=== PATIENT | female | born 1965 | race Hispanic/Latino ===

== ENCOUNTER 2018-10-03 06:29 | Day surgery (SDC) | payer BC ==
--- OUTSIDE RECORDS SUMMARY | 2018-10-03 06:31 | XMS REPORT ---
:1965 [facility] Address [address] [place] [address] [address] Care Team Providers Name Role Phone Unavailable Unavailable Unavailable Payers Payer Name Policy Type Policy Number Effective Date Expiration Date Problems This patient has no known problems. Allergies, Adverse Reactions, Alerts This patient has no known allergies or adverse reactions. Medications This patient has no known medications.
[2018-10-03] MEDS ORDERED: Ringers Lactate 1,000 ML IV ONE (06:54)
[2018-10-03] MEDS ORDERED: LIDOCAINE 1% 20 ML MDV ONE (06:58)
[2018-10-03] MEDS ORDERED: LIDOCAINE 1% MPF 5 ML VIAL ONE (07:38)
[2018-10-03] MEDS ORDERED: PROPOFOL 200 MG/20 ML VIAL IV ONE (07:38)
--- NOTE | 2018-10-03 07:45 | ENDO RPT ---
[address], [address] COLONOSCOPY PROCEDURE REPORT EXAM DATE: 10/03/2018 PATIENT NAME: Ofelia Henley MR #: [id number] BIRTHDATE: 1965 ATTENDING: Mihir Ya MD STATUS: outpatient E [employer] MARKETING MANAGER: Maki Madrigal, Boogie Regalado RN, and Sanna Ibanez RN INDICATIONS: The patient is a 53 yr old Female here for a colonoscopy due to colon cancer screening PROCEDURE PERFORMED: Colonoscopy with biopsy - cold polypectomy MEDICATIONS: Per Anesthesia. ESTIMATED BLOOD LOSS: None CONSENT: The patient understands the risks and benefits of the procedure and understands that these risks include, but are not limited to: sedation, allergic reaction, infection, perforation and/or bleeding. Alternative means of evaluation and treatment include, among others: physical exam, x-rays, and/or surgical intervention. The patient elects to proceed with this endoscopic procedure. DESCRIPTION OF PROCEDURE: During intra-op preparation period all mechanical medical equipment was checked for proper function. Hand hygiene and appropriate measures for infection prevention was taken. Procedure, possible complications, alternatives including, but not limited to possibility of bleeding, perforation, tear, infection, sepsis, need for surgery, need for blood transfusion, were explained to the patient. After the risks, benefits and alternatives of the procedure were thoroughly explained, Informed consent was verified, confirmed and timeout was successfully executed by the treatment team. The patient was placed in the left lateral position. A digital rectal exam was performed and revealed external hemorrhoids. After appropriate level of anesthesia, the scope was passed. The EC-[id number] ([id number]) endoscope was introduced through the anus and advanced to the cecum, which was identified by transillumination from the light source, the appendix, and the ileocecal valve. The quality of the prep was good. The instrument was then slowly withdrawn as the colon was fully examined. Scope withdrawal time was . COLON FINDINGS: A sessile polyp was found at approxinmately 90 cm from anal verge less than 0.3cm in size. . Retroflexed views revealed no abnormalities. The scope was then completely withdrawn from the patient and the procedure terminated. ADVERSE EVENTS: There were no complications. IMPRESSIONS: 1. Sessile polyp was found; polypectomy was performed in a piecemeal fashion using hot forceps 2. External hemorrhoids 3. Internal hemorrhoids RECOMMENDATIONS: follow-up: office 1 week(s) RECALL: for Colonoscopy, pending biopsy results. Mihir Ya MD eSigned: Mihir Ya MD 10/03/2018 7:45 AM cc: Lay Khan M.D. CPT CODES: ICD9 CODES: PATIENT NAME: Ofelia Henley MR#: [id number]
[2018-10-03 08:03] VITALS: BP 105/67; TEMP 97.1; O2SAT 97
== END 2018-10-03 08:35 | disposition home or self-care (01) ==
LOC: OR 06:29
PROVIDERS: ATTEND Surgery
PROC: 0DBL8ZX Excision of Transverse Colon, Via Natural or Artificial Opening Endoscopic, Diagnostic (ICD-10-PCS; principal; 2018-10-03 07:30)
DX: Z12.11 Encounter for screening for malignant neoplasm of colon (principal); D12.3 Benign neoplasm of transverse colon; K64.8 Other hemorrhoids; K64.4 Residual hemorrhoidal skin tags
CPT/HCPCS: 45384; 88305; J2704

== ENCOUNTER 2020-11-04 08:23 | Day surgery (SDC) | payer OTHER ==
--- NOTE | 2020-11-04 08:25 | RAD REPORT ---
EXAM DESCRIPTION: RAD - Chest Pa And Lat (2 Views) - 11/04/2020 8:20 am CLINICAL HISTORY: preop COMPARISON: Abdomen Exam Complete dated 10/20/2020 FINDINGS: Lungs: No evidence of edema or pneumonia. Pleural: No significant pleural effusions or pneumothorax. Cardiac: The heart size is within normal limits. Bones: No acute fractures. Lines: None. IMPRESSION: No acute cardiopulmonary disease.
[2020-11-04 08:31] LABS: Basophils % 0.3 % (0-1.3); Lymphocytes % 27.3 % (15.3-44.8); MPV 7.7 fL (7.6-11.3); RBC Red Blood Cell Count 4.63 M/uL (3.86-4.86)
[2020-11-04 08:47] LABS: ALT/SGPT 29 U/L (12-78); AST/SGOT 16 U/L (15-37); Albumin 3.8 g/dL (3.4-5.0); Alkaline Phosphatase 61 U/L (45-117); Amylase 51 U/L (25-115); BUN Blood Urea Nitrogen 20 mg/dL (7-18); Bicarbonate 29 mmol/L (21-32); Bilirubin Direct 0.1 mg/dL (0-0.2); Bilirubin Total 0.5 mg/dL (0.2-1.0); Glucose Level 91 mg/dL (74-106); Lipase 72 U/L (73-393); Potassium 4.4 mmol/L (3.5-5.1); Protein, Total 7.1 g/dL (6.4-8.2); Sodium Level 143 mmol/L (136-145)
[2020-11-04] MEDS ORDERED: Ringers Lactate 1,000 ML IV ONE (09:12)
[2020-11-04] MEDS ORDERED: CEFOXITIN/SWI 1gm 1 GM/10 ML SYR ONE (09:13)
[2020-11-04] MEDS ORDERED: MIDAZOLAM HCL 2 MG/2 ML INJ ONE (10:42)
[2020-11-04] MEDS ORDERED: FENTANYL CITR 100 MCG/2 ML ONE ×2 (10:43→14:53)
[2020-11-04] MEDS ORDERED: propofoL 200 MG/20 ML VIAL IV ONE (10:43)
[2020-11-04] MEDS ORDERED: LIDOCAINE 2% MPF 5 ML VIAL ONE (10:44)
[2020-11-04] MEDS ORDERED: ONDANSETRON 4 MG/2 ML VIAL ONE (10:44)
[2020-11-04] MEDS ORDERED: ROCURONIUM 50 MG/5 ML VIAL IV ONE (10:44)
--- NOTE | 2020-11-04 11:00 | P.BOP ---
Preoperative diagnosis: RUQ abd pain, acute cholecystitis, enlarging gallbladder polyps Postoperative diagnosis: same Primary procedure: Laparoscopic cholecystectomy Estimated blood loss: <10cc Specimen: gb Findings: as above Anesthesia: General Complications: None Transferred to: Recovery Room Condition: Good
[2020-11-04] MEDS ORDERED: BUPIVACAINE 0.5% PF 10 ML VIAL ONE (11:10)
[2020-11-04] MEDS ORDERED: dexAMETHasone 10 MG/ML VIAL ONE (11:16)
[2020-11-04 11:46] VITALS: O2SAT 100
[2020-11-04] MEDS ORDERED: KETOROLAC 30 MG/ML INJ ONE (11:48)
[2020-11-04] MEDS ORDERED: NEOSTIGMINE 1 MG/ML -5 ML ONE (11:50)
[2020-11-04] MEDS ORDERED: GLYCOPYRROLATE 0.2 MG/ML SYR ONE (11:50)
--- NOTE | 2020-11-04 12:19 | DS ---
Diagnosis: Right upper quadrant abdominal pain, acute cholecystitis, enlarging gallbladder polyps. Disposition: Home. Activity: As tolerated. No heavy lifting. Plan: Follow up in my office in 1 week. Call for appointment at [phone]. Keep area dry for 48 marva rs, then may shower. Keep Steri-Strip intact. Medications: Include Tylenol No.3 q.4 hours p.r.n. pain, Bactrim DS p.o. b.i.d., and Zofran 4 q.6 p. r.n. nausea. ROMAN/KIRK Voice ID: [id number] Report ID: [id number]
--- NOTE | 2020-11-04 12:19 | OP ---
Date of Procedure: 11/04/2020 Surgeon: Mihir Ya MD Preoperative Diagnoses: Right upper quadrant abdominal pain, acute cholecystitis, enlarging gallblad nora polyps. Postoperative Diagnoses: Right upper quadrant abdominal pain, acute cholecystitis, enlarging gallbla dder polyps. Procedure: Laparoscopic cholecystectomy. Specimen: Gallbladder. Findings: The gallbladder from the outside does not look like has any tumors, liver with no tumors a t least extra capsule and anterior. Anesthesia: General plus local. Indication: This is the case of a female, who comes to us with a recurrent right upper quadrant abdo angel pain, acute cholecystitis, also found to have gallbladder polyps. Apparently, she has some bef ore, now she has enlargement of the previous one and new one. So, she understands the option of lapa roscopic possible open cholecystectomy, as well as options. She wants that with benefits, alternativ es, and risks fully explained to the patient including, but not limited to infection, bleeding, damag e to adjacent structures, anesthesia complication, choledocholithiasis, bile leak, pancreatitis, MS, and even . She also understands this may not relieve any symptoms. She might need more than on e surgical intervention. She understood, signed a consent. Procedure In Detail: The patient was brought to the operating room, placed in supine position. Anes thesia was done without complication. A time-out was called. Abdomen was prepped and draped in usua l sterile fashion. Marcaine 0.5% was injected for local anesthetic after time-out. An incision was done in the infraumbilical region. Incision was carried down to fascia, which was opened under direc t vision. Peritoneum was encountered, opened under direct vision. Vicryl #1 placed inside the fasci a. Aditi trocar was carefully introduced. Pneumoperitoneum was obtained. I placed 3 more trocars, 5 mm each one of them in epigastric and right upper quadrant under direct visualization. This allow ed me to put a grasper in the fundus of the gallbladder, another grasper in the infundibulum retracti ng the gallbladder in the inferolateral fashion, exposing the triangle of Calot, and obtaining critic al view. Cystic duct and cystic artery were clearly isolated, free circumferentially and a connectio n between those and the gallbladder were clearly identified. I proceeded to ligate those by using at least 3 clips proximal, 1 clip distal, ligation in middle. Same was done with the cystic artery. N o bile leak. No bleeding. The gallbladder was removed from liver using Bovie cauterizer and removed from abdominal cavity using EndoCatch through the umbilical incision. The area was inspected once a gain. No bile leak. No bleeding. At that moment, I proceeded to remove the trocars under direct vi peter. Deflated pneumoperitoneum, closed the fascia with #1 Vicryl. Irrigated subcutaneous tissue, c losed that with 3-0 chromic and the skin in subcuticular fashion with 3-0 chromic and Steri-Strips on top. Sponge count and instrument counts correct. The patient tolerated the procedure well. The pa tient was sent to recovery in stable condition. ROMAN/KIRK Voice ID: [id number] Report ID: [id number]
--- NOTE | 2020-11-04 12:50 | EKG ---
Test Date: 2020-11-04 Test Time: 07:06:49 Commodities Requirements Analyst: MAURICIO MEASUREMENT RESULTS: Intervals: Rate: 53 VT: 128 QRSD: 76 QT: 452 QTc: 424 [place]: P: 79 VT: 128 QRS: 78 T: 69 INTERPRETIVE STATEMENTS: Sinus bradycardia Otherwise normal ECG No previous ECG available for comparison Electronically Signed On 11-04-20 12:50:19 CDT by Denzel Sneed
[2020-11-04 12:52] VITALS: BP 125/66; TEMP 96.3
[2020-11-04] MEDS ORDERED: CODEINE 30MG/APAP 300MG TAB ONE (13:00)
[2020-11-04] MEDS ORDERED: EPHEDRINE SULF 50 MG/ML VIAL ONE (14:25)
== END 2020-11-04 13:00 | disposition home or self-care (01) ==
LOC: OR 08:23
PROVIDERS: ATTEND Surgery
PROC: 0FT44ZZ Resection of Gallbladder, Percutaneous Endoscopic Approach (ICD-10-PCS; principal; 2020-11-04 09:45)
DX: K81.1 Chronic cholecystitis (principal); K82.4 Cholesterolosis of gallbladder; R10.13 Epigastric pain; R10.11 Right upper quadrant pain; Z20.822 Contact with and (suspected) exposure to COVID-19
CPT/HCPCS: 93005; 85025; 80048; 36415; 82150; 84703; 80076; 88304; 83690; 71046; 47562; U0003; J2704; J2250; J3010 ×2; J1100; J2710; J7120; J2405

== ENCOUNTER 2021-06-09 09:44 | Emergency (ER) | payer OTHER ==
--- OUTSIDE RECORDS SUMMARY | 2021-06-09 09:46 | XMS REPORT | Continuity of Care Document ---
:1965 Author Organization [facility] t Address [address] [place] [address] Care Team Providers Name Role Phone Jhoan Khan Attending Clinician Unavailable Lab, Fam Pob I Attending Clinician Unavailable Leslie EDUCATIONAL ADVISOR Attending Clinician Doctor Unassigned, Name Attending Clinician Unavailable Jhoan Khan Admitting Clinician Unavailable Physician, Primary or Family Admitting Clinician Unavailabl e Payers Payer Name Policy Type Policy Number Effective Date Expiration Date S [facility] - [id number] 2018 00:00:00 OUT OF STATE Problems This patient has no known problems. Allergies, Adverse Reactions, Alerts Allergy Allergy Status Severity Reaction(s) Onset Inactive Treating Comm ents Source Name Type Date Date Clinician NO KNOWN Drug Active Univers ALLERGIE Class ity of S [facility] Social History Social Habit Start Date Stop Date Quantity Comments Source Sex Assigned At Uni versity [facility] Exposure to SARS-CoV-2 Not sure [facility] [place] (event) [facility] Smoking Status Start Date Stop Date Source Unknown if ever smoked Universit y [facility] Medications This patient has no known medications. Procedures This patient has no known procedures. Encounters Start End Encounter Admission Attending Care Care Encounter Source Date/Time Date/Time Type Type Clinicians Facility Department ID 2020-09-11 2020-09-11 Outpatient JASMIN Carlos [id number] [facility] 12:00:00 12:00:00 Griselda [id number] [facility] 2020-02-25 2020-02-[address] [facility] [id number] Univers 11:00:00 11:00:00 ity of [facility] 2020-02-25 2020-02-25 Laboratory Lab, Adc Fam Pob I [facility] [id number] Univers 10:50:01 10:59:30 Only Aneeladio, Taylor [facility] [id number] ity of [place] [id number] Sampson as Professio [phone] [address] Office Building One 2020-02-25 2020-02-25 Letter Doctor AYLA [id number] Univers 00:00:00 00:00:00 (Out) Unassigned, SUELLEN [id number] ity of [place] [facility] [id number] Sampson as [phone] [address] 2019-09-20 2019-09-20 Outpatient LORRAINE Khan [facility] ERICA [id number] [facility] 12:00:00 12:00:00 Griselda [id number] [facility] Results This patient has no known results.
[2021-06-09 10:22] LABS: Absolute Lymphocytes (CBC) 1.3 K/uL (0.7-4.9); Hematocrit 41.2 % (36.0-45.0); Lymphocytes % 30.4 % (15.3-44.8); MPV 7.5 fL (7.6-11.3); RBC Red Blood Cell Count 4.67 M/uL (3.86-4.86)
[2021-06-09 10:39] LABS: Albumin 3.8 g/dL (3.4-5.0); Bilirubin Total 0.6 mg/dL (0.2-1.0); Potassium 3.9 mmol/L (3.5-5.1); Protein, Total 7.4 g/dL (6.4-8.2)
[2021-06-09 10:57] LABS: Urine Blood Negative (Negative); Urine Glucose Negative (Negative); Urine Protein Negative (Negative); Urine pH 6.5 (5.0-7.0)
--- NOTE | 2021-06-09 11:17 | RAD REPORT ---
EXAM DESCRIPTION: CTAbdomen Pelvis W Contrast - 06/09/2021 11:09 am CLINICAL HISTORY: ABD PAIN COMPARISON: No comparisons TECHNIQUE: CT of the abdomen and pelvis was performed. All CT scans are performed using dose optimization technique as appropriate and may include automated exposure control or mA/KV adjustment according to patient size. FINDINGS: Lower chest: No acute abnormality. Liver: Low-density lesion in the posterior aspect of the right hepatic lobe measuring 12 millimeters. Biliary: Cholecystectomy. Stomach: No significant focal abnormality. Duodenum: No significant focal abnormality. Pancreas: No significant abnormality. Spleen: No significant abnormality. Adrenal: No suspicious lesions. Kidney/ureter: No hydronephrosis. No renal calculi. Retroperitoneum: No retroperitoneal adenopathy. Vascular: No aneurysm. Bowel: No bowel obstruction.. No appendicitis. Peritoneum: No ascites or free air. Small fat containing umbilical hernia. Bladder: Mild circumferential bladder wall thickening. This is nonspecific. Reproductive: No adnexal masses. Bones: No acute fracture. Other: n/a IMPRESSION: No acute intra-abdominal or pelvic finding. Incidental findings as noted above.
[2021-06-09 11:53] LABS: Urine Bacteria <20 /HPF (<20); Urine RBC <5 /HPF (NONE SEEN)
--- NOTE | 2021-06-09 12:01 | EDPHYS ---
Physician Documentation [facility] Name: Ofelia Henley Age: 55 yrs Sex: Female : 1965 Arrival Date: 06/09/2021 Time: 09:45 Bed 18 Private MD: ED Physician Kwan Del Cid HPI: 06/09 12:10 This 55 yrs old Female presents to ER via Ambulatory with complaints of kb Abdominal Pain. 12:11 The patient presents with abdominal pain right lower quadrant. Onset: The kb symptoms/episode began/occurred 3 day(s) ago. The symptoms radiate to back. Associated signs and symptoms: none. The symptoms are described as constant. Modifying factors: The symptoms are alleviated by nothing, the symptoms are aggravated by nothing. Severity of pain: At its worst the pain was moderate in the emergency department the pain is unchanged. The patient has experienced similar episodes in the past, a few times. The patient has not recently seen a physician. Pt reports pain to RLQ that started 3 days ago. States she has had this in the past, but it normally goes away. . MANAGER COMPLETIONS: 10:01 LMP N/A - Post-menopause jd3 Historical: - Allergies: 10:00 No Known Allergies; jd3 - Home Meds: 10:00 nvekftkqltc-gttxfudkmpfhh-ctgtpjpcnjels oral [Active]; jd3 - PMHx: 10:00 None; jd3 - PSHx: 10:00 Cholecystectomy; jd3 - Immunization history:: Adult Immunizations up to date, Client reports receiving the 2nd dose of the Covid vaccine, Flu vaccine is up to date. - Social history:: Smoking status: Patient denies any tobacco usage or history of. ROS: 12:10 Constitutional: Negative for fever, chills, and weight loss. kb 12:10 Abdomen/GI: Positive for abdominal pain, Negative for nausea, vomiting, and diarrhea. 12:10 All other systems are negative. Exam: 12:10 Constitutional: This is a well developed, well nourished patient who is awake, alert, kb and in no acute distress. Head/Face: Normocephalic, atraumatic. ENT: Moist Mucous membranes Cardiovascular: Regular rate and rhythm with a normal S1 and S2. No gallops, murmurs, or rubs. No pulse deficits. Respiratory: Respirations even and unlabored. No increased work of breathing. Talking in full sentences Abdomen/GI: Soft, non-tender. No distention Skin: Warm, dry with normal turgor. Normal color. MS/ Extremity: Pulses equal, no cyanosis. Neurovascular intact. Full, normal range of motion. Neuro: Awake and alert, GCS 15, oriented to person, place, time, and situation. Moves all extremities. Normal gait. Psych: Awake, alert, with orientation to person, place and time. Behavior, mood, and affect are within normal limits. Vital Signs: 10:01 BP 135 / 88; Pulse 71; Resp 18 S; Temp 98.4(TE); Pulse Ox 99% on R/A; Weight 73.94 kg jd3 (R); Height 5 ft. 4 in. (162.56 cm) (R); Pain 6/10; 10:01 Body Mass Index 27.98 (73.94 kg, 162.56 cm) jd3 MDM: 10:01 Patient medically screened. kb 12:10 Data reviewed: vital signs, nurses notes. Data interpreted: Pulse oximetry: on room air kb is 99 %. Interpretation: normal. Counseling: I had a detailed discussion with the patient and/or guardian regarding: the historical points, exam findings, and any diagnostic results supporting the discharge/admit diagnosis, lab results, radiology results, the need for outpatient follow up, a family practitioner, to return to the emergency department if symptoms worsen or persist or if there are any questions or concerns that arise at home. 06/09 10:01 Order name: CBC with Diff; Complete Time: 10:23 kb 06/09 10:01 Order name: CMP; Complete Time: 10:40 kb 06/09 10:01 Order name: Lipase; Complete Time: 10:40 kb 06/09 10:57 Order name: Urine Dipstick-Ancillary; Complete Time: 10:59 EDMS 06/09 11:19 Order name: Urine Microscopic Only; Complete Time: 12:00 kb 06/09 11:57 Order name: Urine Culture EDKY 06/09 10:01 Order name: CT Abd/Pelvis - IV Contrast Only; Complete Time: 11:19 kb 06/09 10:01 Order name: IV Saline Lock; Complete Time: 10:13 kb 06/09 10:01 Order name: Labs collected and sent; Complete Time: 10:13 kb 06/09 10:01 Order name: Urine Dipstick-Ancillary (obtain specimen); Complete Time: 11:28 kb Administered Medications: No medications were administered Disposition: 12:59 Co-signature as Attending Physician, Kwan Del Cid MD I agree with the assessment and kdr plan of care. Disposition Summary: 06/09/21 12:00 Discharge Ordered Location: Home kb Condition: Stable kb Diagnosis - Abdominal pain, Generalized kb Followup: kb - With: Emergency Department - When: As needed - Reason: Worsening of condition Followup: kb - With: Private Physician - When: 2 - 3 days - Reason: Recheck today's complaints, Continuance of care, Re-evaluation by your physician Discharge Instructions: - Discharge Summary Sheet kb - Abdominal Pain, Adult, Nwfm-ky-Pszr kb Forms: - Medication Reconciliation Form kb - Thank You Letter kb - Antibiotic Education kb - Prescription Opioid Use kb - Work release form as Prescriptions: - Diclofenac Sodium 75 mg Oral tablet,delayed release (DR/EC) - take 1 tablet by ORAL route 2 times per day As needed; 30 tablet; Refills: 0, kb Product Selection Permitted Signatures: Dispatcher [employer] EDMS Latasha Samson, BENCH SCIENTIST-C BENCH SCIENTIST-Kwan Mena MD MD kdr Davies, Jonathon RN RN jd3
--- NOTE | 2021-06-09 12:01 | ER ---
Nurse's Notes [facility] Name: Ofelia Henley Age: 55 yrs Sex: Female : 1965 Arrival Date: 06/09/2021 Time: 09:45 Bed 18 Private MD: Diagnosis: Abdominal pain, Generalized Presentation: 06/09 09:58 Chief complaint: Patient states: "I am having some pain for 3 days on my right side of jd3 my lower stomach and comes around to the right side of my hips.". Coronavirus screen: At this time, the client does not indicate any symptoms associated with coronavirus-19. Ebola Screen: No symptoms or risks identified at this time. Initial Sepsis Screen: Does the patient meet any 2 criteria? No. Patient's initial sepsis screen is negative. Does the patient have a suspected source of infection? No. Patient's initial sepsis screen is negative. Risk Assessment: Do you want to hurt yourself or someone else? Patient reports no desire to harm self or others. Onset of symptoms was June 06, 2021. 09:58 Method Of Arrival: Ambulatory [facility] 09:58 Acuity: MARCO 3 jd3 Triage Assessment: 12:19 General: Appears in no apparent distress. comfortable, Behavior is calm, cooperative, ap3 appropriate for age. Pain: Complains of pain in abdomen. Neuro: Level of Consciousness is awake, alert, obeys commands, Oriented to person, place, time, situation. Cardiovascular: Patient's skin is warm and dry. Respiratory: Airway is patent Respiratory effort is even, unlabored. GI: Abdomen is flat, Patient currently denies nausea, vomiting. NUTRITION CLUB AMBASSADOR: 10:01 LMP N/A - Post-menopause jd3 Historical: - Allergies: 10:00 No Known Allergies; jd3 - Home Meds: 10:00 lilwcohffgk-vskjayknwicbj-utppjdiuihzlc oral [Active]; jd3 - PMHx: 10:00 None; jd3 - PSHx: 10:00 Cholecystectomy; jd3 - Immunization history:: Adult Immunizations up to date, Client reports receiving the 2nd dose of the Covid vaccine, Flu vaccine is up to date. - Social history:: Smoking status: Patient denies any tobacco usage or history of. Screenin:19 Abuse screen: Denies threats or abuse. Nutritional screening: No deficits noted. ap3 Tuberculosis screening: No symptoms or risk factors identified. Fall Risk None identified. Assessment: 12:21 GI: Bowel sounds Abd is soft and non tender. ap3 Vital Signs: 10:01 BP 135 / 88; Pulse 71; Resp 18 S; Temp 98.4(TE); Pulse Ox 99% on R/A; Weight 73.94 kg jd3 (R); Height 5 ft. 4 in. (162.56 cm) (R); Pain 6/10; 10:01 Body Mass Index 27.98 (73.94 kg, 162.56 cm) jd3 ED Course: 09:45 Patient arrived in ED. as 09:58 Latasha Samson FNP-C is PHCP. kb 09:58 Kwan Del Cid MD is Attending Physician. kb 10:00 Triage completed. jd3 10:02 Arm band placed on. jd3 10:13 Inserted saline lock: 20 gauge in left Blood collected. placed by JIN Coppola. jd3 11:11 CT Abd/Pelvis - IV Contrast Only In Process Unspecified. EDMS 12:01 Ingrid Barillas, RN is Primary Nurse. ap3 12:20 Patient has correct armband on for positive identification. Pulse ox on. NIBP on. Door ap3 closed. Noise minimized. 12:20 No provider procedures requiring assistance completed. IV discontinued, intact, ap3 bleeding controlled, No redness/swelling at site. Pressure dressing applied. Administered Medications: No medications were administered Outcome: 12:00 Discharge ordered by MD. kb 12:21 Discharged to home ambulatory. ap3 12:21 Condition: good 12:21 Discharge instructions given to patient, Instructed on discharge instructions, follow up and referral plans. medication usage, Demonstrated understanding of instructions, follow-up care, medications, Prescriptions given X 1. 12:21 Patient left the ED. ap3 Signatures: Dispatcher [employer] EDMS Latasha Samson FNP-C FNP-Christine Melendrez Jonathon, RN RN jd3 Ingrid Barillas RN RN ap3
[2021-06-09] MEDS ORDERED: DIAZEPAM 10 MG/2 ML INJ SYRINGE ONE (14:10)
[2021-06-09] MEDS ORDERED: NA CHLORIDE 0.9% 500 ML ONE (14:10)
[2021-06-09] MEDS ORDERED: KETOROLAC 30 MG/ML INJ ONE (14:10)
[2021-06-09 21:42] VITALS: BP 135/88; TEMP 98.4; O2SAT 99
== END 2021-06-09 12:21 | disposition home or self-care (01) ==
LOC: ER 09:44
DX: R10.84 Generalized abdominal pain (principal)
CPT/HCPCS: 87088; 85025; 87086; 36415; 83690; 80053; 74177; Q9967; J3360; J7040; 81003; 81015

== ENCOUNTER 2022-02-16 09:55 | Day surgery (SDC) | payer OTHER ==
[2022-02-16] MEDS ORDERED: Ringers Lactate 1,000 ML IV ONE ×2 (10:16→11:44)
[2022-02-16] MEDS ORDERED: propofoL 200 MG/20 ML VIAL IV ONE ×2 (11:36→11:37)
--- NOTE | 2022-02-16 12:02 | ENDO RPT ---
[address], [address] COLONOSCOPY PROCEDURE REPORT EXAM DATE: 02/16/2022 PATIENT NAME: Ofelia Henley MR #: [id number] BIRTHDATE: 1965 ATTENDING: Mihir Ya MD STATUS: outpatient TELEGRAPHER AGENT: Dara Ayala RN, Sofie Cristobal RN, and Tania GONZÁLES INDICATIONS: The patient is a 56 yr old Female here for a colonoscopy due to colon cancer screening PROCEDURE PERFORMED: Colonoscopy MEDICATIONS: Per Anesthesia. ESTIMATED BLOOD LOSS: None CONSENT: The patient understands the risks and benefits of the procedure and understands that these risks include, but are not limited to: sedation, allergic reaction, infection, perforation and/or bleeding. Alternative means of evaluation and treatment include, among others: physical exam, x-rays, and/or surgical intervention. The patient elects to proceed with this endoscopic procedure. DESCRIPTION OF PROCEDURE: During intra-op preparation period all mechanical medical equipment was checked for proper function. Hand hygiene and appropriate measures for infection prevention was taken. Procedure, possible complications, alternatives including, but not limited to possibility of bleeding, perforation, tear, infection, sepsis, need for surgery, need for blood transfusion, were explained to the patient. After the risks, benefits and alternatives of the procedure were thoroughly explained, Informed consent was verified, confirmed and timeout was successfully executed by the treatment team. The patient was placed in the left lateral position. A digital rectal exam was performed and revealed external hemorrhoids. After appropriate level of anesthesia, the scope was passed. The EC-3890Li ([id number]) endoscope was introduced through the anus and advanced to the cecum, which was identified by transillumination from the light source, the appendix, and the ileocecal valve. The quality of the prep was good. The instrument was then slowly withdrawn as the colon was fully examined. Scope withdrawal time was . COLON FINDINGS: Diverticula was found throughout the entire examined colon. The opening was small. Moderate sized internal and external hemorrhoids were found. Retroflexed views revealed no abnormalities. The scope was then completely withdrawn from the patient and the procedure terminated. ADVERSE EVENTS: There were no complications. IMPRESSIONS: 1. Diverticula throughout the entire examined colon 2. Moderate sized internal and external hemorrhoids RECOMMENDATIONS: follow-up: office 1-2 week(s) RECALL: Return in 5 year(s) for Colonoscopy. Mihir Ya MD eSigned: Mihir Ya MD 02/16/2022 12:02 PM cc: CPT CODES: ICD9 CODES: PATIENT NAME: Ofelia Henley MR#: [id number]
--- NOTE | 2022-02-16 12:03 | ENDO RPT ---
[address], [address] COLONOSCOPY PROCEDURE REPORT EXAM DATE: 02/16/2022 PATIENT NAME: Ofelia Henley MR #: [id number] BIRTHDATE: 1965 ATTENDING: Mihir Ya MD STATUS: outpatient LINOTYPIST: Dara Ayala RN, Sofie Cristobal RN, and Tania GONZÁLES INDICATIONS: The patient is a 56 yr old Female here for a colonoscopy due to colon cancer screening PROCEDURE PERFORMED: Colonoscopy MEDICATIONS: Per Anesthesia. ESTIMATED BLOOD LOSS: None CONSENT: The patient understands the risks and benefits of the procedure and understands that these risks include, but are not limited to: sedation, allergic reaction, infection, perforation and/or bleeding. Alternative means of evaluation and treatment include, among others: physical exam, x-rays, and/or surgical intervention. The patient elects to proceed with this endoscopic procedure. DESCRIPTION OF PROCEDURE: During intra-op preparation period all mechanical medical equipment was checked for proper function. Hand hygiene and appropriate measures for infection prevention was taken. Procedure, possible complications, alternatives including, but not limited to possibility of bleeding, perforation, tear, infection, sepsis, need for surgery, need for blood transfusion, were explained to the patient. After the risks, benefits and alternatives of the procedure were thoroughly explained, Informed consent was verified, confirmed and timeout was successfully executed by the treatment team. The patient was placed in the left lateral position. A digital rectal exam was performed and revealed external hemorrhoids. After appropriate level of anesthesia, the scope was passed. The EC-[id number] ([id number]) endoscope was introduced through the anus and advanced to the cecum, which was identified by transillumination from the light source, the appendix, and the ileocecal valve. The quality of the prep was good. The instrument was then slowly withdrawn as the colon was fully examined. Scope withdrawal time was . COLON FINDINGS: Diverticula was found throughout the entire examined colon. The opening was small. Moderate sized internal and external hemorrhoids were found. Retroflexed views revealed no abnormalities. The scope was then completely withdrawn from the patient and the procedure terminated. ADVERSE EVENTS: There were no complications. IMPRESSIONS: 1. Diverticula throughout the entire examined colon 2. Moderate sized internal and external hemorrhoids RECOMMENDATIONS: follow-up: office 1-2 week(s) RECALL: Return in 5 year(s) for Colonoscopy. Mihir Ya MD eSigned: Mihir Ya MD 02/16/2022 12:02 PM cc: CPT CODES: ICD9 CODES: PATIENT NAME: Ofelia Henley MR#: [id number]
[2022-02-16 12:26] VITALS: TEMP 98.1
[2022-02-16 12:45] VITALS: BP 117/65; O2SAT 96
== END 2022-02-16 12:48 | disposition home or self-care (01) ==
LOC: OR 09:55
PROVIDERS: ATTEND Surgery
PROC: 0DJD8ZZ Inspection of Lower Intestinal Tract, Via Natural or Artificial Opening Endoscopic (ICD-10-PCS; principal; 2022-02-16 12:15)
DX: Z12.11 Encounter for screening for malignant neoplasm of colon (principal); K57.30 Diverticulosis of large intestine without perforation or abscess without bleeding; K64.4 Residual hemorrhoidal skin tags; K64.8 Other hemorrhoids
CPT/HCPCS: 45378; J2704; J7120